=== PATIENT | female | born 1970 | race Caucasian/White ===

== ENCOUNTER 2018-01-06 15:04 | Observation (INO) | payer OTHER ==
[2018-01-06 15:14] VITALS: BMI 26.5
[2018-01-06] MEDS ORDERED: ASPIRIN 325 MG TABLET PO ONE (15:30)
[2018-01-06] MEDS ORDERED: ASPIRIN 325 MG TABLET ONE (15:38)
[2018-01-06] MEDS ORDERED: ASPIRIN 81 MG CHEWABLE TABLETS ONE (15:40)
[2018-01-06] MEDS: SODIUM CHLORIDE 1,000 ML IV SCH (15:42)
[2018-01-06 15:47] LABS: INR 1.19 (0.82-1.09); PROTHROMBIN TIME (PATIENT) 13.4 SEC (9.7-13.0)
[2018-01-06] MEDS ORDERED: ASPIRIN COATED 81 MG TABLET.EC ONE (15:47)
--- NOTE | 2018-01-06 15:49 | PDOC ---
History of Present Illness - General History Source: Patient, EMS Exam Limitations: No Limitations <Felipe Olson - Last Filed: 01/06/18 16:29> - General History Source: Patient, EMS Exam Limitations: No Limitations - History of Present Illness Initial Comments: 01/06/18 16:03 The patient is a 47 year old female, with a significant past medical history of hypertension, asthma, prior TIA, and distant migraine, who presents to the emergency department via EMS with, right sided weakness. 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 She reports sudden onset heartburn-like symptoms and associated shortness of breath with diaphoresis. She took a TUMS and felt an onset of right sided facial numbness with paresthesias across her right side upper and lower extremities. The patient never had a stress test of echocardiogram. She denies recent fevers, chills, headache or dizziness. She denies recent nausea, vomit, diarrhea or constipation. She denies recent dysuria, frequency, urgency or hematuria. <Hyacinth Alas - Last Filed: 01/06/18 17:22> - General Chief Complaint: CVA/TIA Stated Complaint: RIGHT SIDE WEAKNESS Time Seen by Provider: 01/06/18 15:10 Past History - Past Medical History CVA: Yes (TIA) COPD: No HTN: Yes - Suicide/Smoking/Psychosocial Hx Smoking History: Never smoked Have you smoked in the past 12 months: No Information on smoking cessation initiated: No Hx Alcohol Use: No Drug/Substance Use Hx: No Substance Use Type: None <Felipe Olson - Last Filed: 01/06/18 16:29> <Hyacinth Alas - Last Filed: 01/06/18 17:22> - Past Medical History Allergies/Adverse Reactions: Allergies Allergy/AdvReac Type Severity Reaction Status Date / Time No Known Allergies Allergy Verified 01/06/18 15:13 Home Medications: Ambulatory Orders NK [No Known Home Medication] 01/06/18 Review of Systems - Review of Systems Able to Perform ROS?: Yes Comments:: 01/06/18 16:03 +GENERAL/CONSTITUTIONAL: Right sided weakness. No fever or chills. HEAD, EYES, EARS, NOSE AND THROAT: No change in vision. No ear pain or discharge. No sore throat. CARDIOVASCULAR: No chest pain or shortness of breath. RESPIRATORY: No cough, wheezing, or hemoptysis. GASTROINTESTINAL: No nausea, vomiting, diarrhea or constipation. GENITOURINARY: No dysuria, frequency, or change in urination. MUSCULOSKELETAL: No joint or muscle swelling or pain. No neck or back pain. SKIN: No rash +NEUROLOGIC: Right upper and lower extremity paresthesias. No headache, vertigo , or loss of consciousness. ENDOCRINE: No increased thirst. No abnormal weight change. HEMATOLOGIC/LYMPHATIC: No anemia, easy bleeding, or history of blood clots. ALLERGIC/IMMUNOLOGIC: No hives or skin allergy. All Other Systems: Reviewed and Negative <Hyacinth Alas - Last Filed: 01/06/18 17:22> *Physical Exam - Vital Signs Last Vital Signs Temp Pulse Resp BP Pulse Ox 98.2 F 74 17 134/81 98 01/06/18 15:10 01/06/18 15:10 01/06/18 15:10 01/06/18 15:10 01/06/18 15:10 <Felipe Olson - Last Filed: 01/06/18 16:29> - Vital Signs Last Vital Signs Temp Pulse Resp BP Pulse Ox 98.2 F 74 17 134/81 98 01/06/18 15:10 01/06/18 15:10 01/06/18 15:10 01/06/18 15:10 01/06/18 15:10 - Physical Exam Comments: 01/06/18 16:32 GENERAL: Awake, alert, and fully oriented, in no acute distress HEAD: No signs of trauma EYES: PERRLA, EOMI, sclera anicteric, conjunctiva clear ENT: Auricles normal inspection, hearing grossly normal, nares patent, oropharynx clear without exudates. Moist mucosa NECK: Normal ROM, supple, no lymphadenopathy, JVD, or masses LUNGS: Breath sounds equal, clear to auscultation bilaterally. No wheezes, and no crackles HEART: Regular rate and rhythm, normal S1 and S2, no murmurs, rubs or gallops ABDOMEN: Soft, nontender, normoactive bowel sounds. No guarding, no rebound. No masses EXTREMITIES: Normal range of motion, no edema. No clubbing or cyanosis. No cords, erythema, or tenderness NEUROLOGICAL: Decreased sensation on the right side of the face. Motor strength 5/5. No pronator drift. Finger to nose normal. Heel to odonnell normal. Cranial nerves II through XII grossly intact. Normal speech, normal gait SKIN: Warm, Dry, normal turgor, no rashes or lesions noted. <Hyacinth Alas - Last Filed: 01/06/18 17:22> NIH Stroke Scale - Last Known Well Date/Time & Onset Date Last Known Well: 01/06/18 Time Last Known Well: 13:40 - Initial Evaluation Level of consciousness: Alert Ask patient the month and their age: Answers both correctly Ask patient to open & close eyes; make fist and let go: Obeys both correctly Best gaze (horizontal eye movement): Normal Visual field testing: No visual field loss Facial paresis (Show teeth/raise eyebrows/close eyes tight): Normal symmetrical movement Motor Function: Left Arm: Normal Motor Function: Right Arm: Normal (extends arm 90 (or 45) degrees for 10 seconds without drift Motor Function: Left Leg: Normal (extends leg 30 degrees for 5 seconds without drift) Motor Function: Right Leg: Normal (extends leg 30 degrees for 5 seconds without drift) Limb Ataxia: No ataxia Sensory(Use pinprick test arms,legs,trunk,face/side to side): Mild to moderate decrease in sensation Best language (Describe picture, name items, read sentences): No Aphasia Dysarthria (read several words): Normal articulation Extinction and Inattention: No abnormality - Total Score NIH Stroke Scale Score: 1 <Felipe Olson - Last Filed: 01/06/18 16:29> tPA Exclusion Checklist 0-3hr - Time Elapsed Date last known well: 01/06/18 Time last known well: 13:40 Elaspsed time: Day(s) and 2 Hour(s) and 49 Minutes - Thrombolytic Therapy Candidate Is the patient eligible for Thrombolytic Therapy?: No - Relative Exclusion Criteria 0-3h Rapid improvement: Yes Stroke severity too mild: Yes - Ineligibility reason(s) Reasons No tPA given: See reason(s) noted above <Felipe Olson - Last Filed: 01/06/18 16:29> Heart Score/ECG Review - History History: Moderately suspicious - Electrocardiogram EKG: Non specific repolarization disturbance - Age Age: 45-65 - Risk Factors Risk Factors Heart Score: Yes Hx Hypertension, Yes Hx Obesity Based on the list above the patient has:: 1-2 risk factors #1 ECG reviewed & interpreted by me at: 15:25 01/06/18 15:44 NSR 76, LVH, TWI III, avF, T wave flat V4-V6, no std/da, QTC 355 msec <Felipe Olson - Last Filed: 01/06/18 16:29> Critical Care Time/MDM Note - Medical Decision Making Note: 01/06/18 15:45 A portion of this note was documented by scribe services under my direction. I have reviewed the details of the note, within reason, and agree with the documentation with the following case summary and management plan written by me. Patient treated in the ED. Nursing notes are reviewed and incorporated into the medical decision-making. Vital signs reviewed. Peripheral IV access obtained by the nurse, laboratory studies are drawn and sent, reviewed and interpreted by myself. Vital Signs Temp Pulse Resp BP Pulse Ox 98.2 F 74 17 134/81 98 01/06/18 15:10 01/06/18 15:10 01/06/18 15:10 01/06/18 15:10 01/06/18 15:10 47-year-old female patient with history of hypertension, asthma, prior TIA, distant migraine history brought in by EMS for right-sided numbness. 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 She was in her usual state of health when she was working which she felt heartburn-like symptoms with associated shortness of breath and diaphoresis. Denies vomiting or radiation. Stated she had taken Tums but then started notice right facial numbness and paresthesias along the right upper extremity right lower extremity. She denies chest pain currently. Denies short of breath currently. Denies recent illnesses , fevers, chills, cough, vomiting, diarrhea. She has a family history of coronary disease with her mother but denies prior cardiac history herself. Denies smoking history. Never had a stress test or an echocardiogram prior. Given a 47-year-old female patient in history of hypertension and obesity, we' ll obtain blood work including troponin, chest x-ray to rule out GA. Differential also includes gastritis. With right-sided numbness, differential includes CVA versus TIA. Given no chest pain at this time, I have low suspicion for aortic dissection at this time. Patient's NIH stroke scale is a 1. Given that it rapidly resolving and in low NIH scale, case was discussed with neurologist Dr. Scherer, we both agree that the patient is not a candidate for TPA. We'll give aspirin. Head CT is negative for acute hemorrhage. Ultimately, the patient should be admitted to the hospital for further cardiac and neurologic workup. 01/06/18 16:29 CBC, BMP 01/06/18 13:22 01/06/18 13:22 CMP Sodium 139 mmol/L (136-145) 01/06/18 13:22 Potassium 2.9 mmol/L (3.5-5.1) L* 01/06/18 13:22 Chloride 102 mmol/L (98-107) 01/06/18 13:22 Carbon Dioxide 26 mmol/L (21-32) 01/06/18 13:22 Anion Gap 11 (8-16) 01/06/18 13:22 BUN 8 mg/dL (7-18) 01/06/18 13:22 Creatinine 0.9 mg/dL (0.55-1.02) 01/06/18 13:22 Creat Clearance w eGFR > 60 (>60) 01/06/18 13:22 Random Glucose 85 mg/dL (74-106) 01/06/18 13:22 Calcium 8.3 mg/dL (8.5-10.1) L 01/06/18 13:22 Total Bilirubin 0.3 mg/dL (0.2-1.0) 01/06/18 13:22 AST 22 U/L (15-37) 01/06/18 13:22 ALT 23 U/L (12-78) 01/06/18 13:22 Alkaline Phosphatase 79 U/L (45-117) 01/06/18 13:22 Creatine Kinase 116 IU/L (26-192) 01/06/18 13:22 Troponin I < 0.02 ng/ml (0.00-0.05) 01/06/18 13:22 Total Protein 7.5 g/dl (6.4-8.2) 01/06/18 13:22 Albumin 3.3 g/dl (3.4-5.0) L 01/06/18 13:22 Triglycerides 242 mg/dL (35-160) H 06/04/18 13:22 Cholesterol 124 mg/dL (50-200) 01/06/18 13:22 Total LDL Cholesterol 28 mg/dL (5-100) 01/06/18 13:22 HDL Cholesterol 89 mg/dL (40-60) H 01/06/18 13:22 01/06/18 16:29 Patient's weakness may potentially be explained by the hypokalemia. Patient reports that she has a history of hypokalemia. Repletion of the hypokalemia with potassium was ordered. However, given the second since, patient should be admitted for a full cardiac workup as well as a neurological workup. Dr. Carley carvajal for consultation. Case was discussed with Dr. Kirby which is the patient for telemetry observation. <Felipe Olson - Last Filed: 01/06/18 16:29> - Medical Decision Making Note: Call placed to Dr. Scherer, neurology friction saw operator, case was discussed. 4:25pm Call placed to Dr. Kirby, covering medical, for admission case was discussed. Call placed to Dr. Braga, friction saw operator automatic dry starch operator, awaiting call back. 5:20pm Call placed to Dr. Braga, friction saw operator automatic dry starch operator, case discussed with Dr. Gill friction saw operator for Dr. Braga. <Hyacinth Alas - Last Filed: 01/06/18 17:22> Discharge Disposition - Discharge Dispostion Decision to Admit order: Yes <Felipe Olson - Last Filed: 01/06/18 16:29> <Hyacinth Alas - Last Filed: 01/06/18 17:22> - Diagnosis Numbness Chest pain Qualifiers: Chest pain type: unspecified Qualified Code(s): R07.9 - Chest pain, unspecified - Discharge Dispostion Condition at time of disposition: Stable Attestations - Attestations 01/06/18 16:05 Documentation prepared by Hyacinth Alas, acting as medical biller coder for Felipe Olson MD. <Hyacinth Alas - Last Filed: 01/06/18 17:22>
[2018-01-06 15:50] LABS: EOS % 9.9 % (0-4.5); LYMPH % 45.7 % (8-40); MCH 30.5 pg (25.7-33.7); MCHC 33.3 g/dl (32.0-36.0); MEAN CELL VOLUME 91.5 fl (80-96); MEAN PLT VOLUME 9.2 fl (7.5-11.1); MONO % 8.8 % (3.8-10.2); NEUT % 33.6 % (42.8-82.8); PLATELET COUNT 380 K/MM3 (134-434); RBC 3.93 M/mm3 (3.60-5.2); RDW 15.6 % (11.6-15.6); WHITE BLOOD COUNT 7.3 K/mm3 (4.0-10.0)
[2018-01-06 16:05] LABS: ALBUMIN 3.3 g/dl (3.4-5.0); ALK PHOS 79 U/L (45-117); ANION GAP 11 (8-16); BILIRUBIN,TOTAL 0.3 mg/dL (0.2-1.0); BLOOD UREA NITROGEN 8 mg/dL (7-18); CALCIUM 8.3 mg/dL (8.5-10.1); CHLORIDE 102 mmol/L (98-107); CHOLESTEROL 124 mg/dL (50-200); CO2 26 mmol/L (21-32); CREATININE 0.9 mg/dL (0.55-1.02); GLUCOSE,RANDOM 85 mg/dL (74-106); HDL CHOLESTEROL 89 mg/dL (40-60); SGOT/AST 22 U/L (15-37); SGPT/ALT 23 U/L (12-78); SODIUM 139 mmol/L (136-145); TOT PROT 7.5 g/dl (6.4-8.2); TRIGLYCERIDES 242 mg/dL (35-160)
[2018-01-06 16:09] LABS: POTASSIUM 2.9 mmol/L (3.5-5.1)
[2018-01-06] MEDS ORDERED: POTASSIUM CHLORIDE TABS 20 MEQ TABLET.ER (FP) PO ONE ×2 (16:11→16:22)
[2018-01-06] MEDS ORDERED: POTASSIUM CHLORIDE ORAL LIQUID 20 MEQ/15 ML ONE ×2 (16:26→16:28)
[2018-01-06] MEDS ORDERED: KCL 10 MEQ IVPB 30 MEQ/300 ML INFUS.BAG IVPB ONE (16:33)
[2018-01-06] MEDS: KCL 10 MEQ IVPB 10 MEQ/100 ML INFUS.BAG IVPB SCH ×3 (16:40→20:34)
[2018-01-06 16:49] LABS: URINE APPEARANCE CLEAR; URINE BILIRUBIN NEGATIVE (<2.0 mg/dL); URINE BLOOD NEGATIVE (NEGATIVE); URINE COLOR LTYELLOW; URINE GLUCOSE (UA) NEGATIVE (NEGATIVE); URINE KETONE NEGATIVE (NEGATIVE); URINE LEUK ESTERASE NEGATIVE (NEGATIVE); URINE NITRITE NEGATIVE (NEGATIVE); URINE PROTEIN NEGATIVE (NEGATIVE); URINE UROBILINOGEN NEGATIVE mg/dL (0.2-1.0)
--- NOTE | 2018-01-06 17:35 | CON.NEURO ---
Consult - Alcohol/Substance Use Hx Alcohol Use: No - Smoking History Smoking history: Never smoked Have you smoked in the past 12 months: No Home Medications - Allergies Allergies/Adverse Reactions: Allergies Allergy/AdvReac Type Severity Reaction Status Date / Time No Known Allergies Allergy Verified 01/06/18 15:13 - Home Medications Home Medications: Ambulatory Orders NK [No Known Home Medication] 01/06/18 Physical Exam-Neuro Vital Signs: Vital Signs Temperature 98.2 F 01/06/18 15:10 Pulse Rate 74 01/06/18 15:10 Respiratory Rate 17 01/06/18 15:10 Blood Pressure 134/81 01/06/18 15:10 O2 Sat by Pulse Oximetry (%) 98 01/06/18 15:10 Labs: CBC, BMP 01/06/18 13:22 01/06/18 13:22 INR, PTT INR 1.19 (0.82-1.09) H 01/06/18 13:22 Assessment/Plan cc Right sided numbness nd weakness HPI 47 year old female history of htn, asthma and prior tia two years ago. She was advice to take apsirin but not taking due to Reflux. As per patient she takes cholestrol medication, reflux medication and bp medication at home. She felt stomach pain and than she felt sweating and right sided weakness adn numbness. Her ct head is normal, her symptoms are completely resolved. Patient denies smoking, cad in past. She denies any other focal neurological symptoms. 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
--- NOTE | 2018-01-06 21:18 | HP ---
Admitting History and Physical - Primary Care Physician PCP: Azael Kirby - Admission History of Present Illness: 47 year old female, with a significant past medical history of hypertension, asthma, prior TIA, and distant migraine, who presents to the emergency department via EMS with, right sided weakness. 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 She reports sudden onset heartburn-like symptoms and associated shortness of breath with diaphoresis. She took a TUMS and felt an onset of right sided facial numbness with paresthesias across her right side upper and lower extremities. - Past Medical History ROLL OPERATOR: Yes: Migraine Cardiovascular: Yes: HTN Pulmonary: Yes: Asthma - Smoking History Smoking history: Never smoked Have you smoked in the past 12 months: No - Alcohol/Substance Use Hx Alcohol Use: No Home Medications - Allergies Allergies/Adverse Reactions: Allergies Allergy/AdvReac Type Severity Reaction Status Date / Time No Known Allergies Allergy Verified 01/06/18 15:13 - Home Medications Home Medications: Ambulatory Orders Losartan/Hydrochlorothiazide [Losartan-Hctz 100-25 mg Tab] 1 each PO DAILY 01/06 Pravastatin Sodium mg PO DAILY 01/06/18 Aspirin 81 mg PO DAILY #30 tab.chew 01/07/18 Physical Examination Vital Signs: Vital Signs Temperature 98.2 F 01/06/18 15:10 Pulse Rate 84 01/06/18 21:02 Respiratory Rate 18 01/06/18 21:02 Blood Pressure 129/78 01/06/18 21:02 O2 Sat by Pulse Oximetry (%) 99 01/06/18 21:02 Constitutional: Yes: No Distress HENT: Yes: Atraumatic Neck: Yes: Supple Cardiovascular: Yes: Regular Rate and Rhythm Respiratory: Yes: CTA Bilaterally Gastrointestinal: Yes: Normal Bowel Sounds Extremities: Yes: WNL Neurological: Yes: Alert, Oriented ...Motor Strength: WNL Labs: CBC, BMP 01/06/18 13:22 01/06/18 13:22 Problem List - Problems (1) Chest pain Assessment/Plan: will fu cardiac enzymes no chest pain now Code(s): R07.9 - CHEST PAIN, UNSPECIFIED Qualifiers: Chest pain type: unspecified Qualified Code(s): R07.9 - Chest pain, unspecified (2) Numbness Assessment/Plan: resolved exam wnl mri pending carotid us pending Code(s): R20.0 - ANESTHESIA OF SKIN Assessment/Plan Laboratory Tests 01/06/18 01/06/18 01/06/18 13:22 13:22 13:22 WBC 7.3 RBC 3.93 Hgb 12.0 Hct 36.0 MCV 91.5 MCH 30.5 MCHC 33.3 RDW 15.6 Plt Count 380 MPV 9.2 Absolute Neuts (auto) 2.5 Neutrophils % 33.6 L Lymphocytes % 45.7 H Monocytes % 8.8 Eosinophils % 9.9 H Basophils % 2.0 Nucleated RBC % 0 PT with INR 13.40 H INR 1.19 H Sodium 139 Potassium 2.9 L* Chloride 102 Carbon Dioxide 26 Anion Gap 11 BUN 8 Creatinine 0.9 Creat Clearance w eGFR > 60 Random Glucose 85 Calcium 8.3 L Total Bilirubin 0.3 AST 22 ALT 23 Alkaline Phosphatase 79 Creatine Kinase 116 Troponin I < 0.02 Total Protein 7.5 Albumin 3.3 L Triglycerides 242 H Cholesterol 124 Total LDL Cholesterol 28 HDL Cholesterol 89 H Urine Color Urine Appearance Urine pH Ur Specific [place] Urine Protein Urine Glucose (UA) Urine Ketones Urine Blood Urine Nitrite Urine Bilirubin Urine Urobilinogen Ur Leukocyte Esterase Blood Type Antibody Screen 01/06/18 01/06/18 13:22 15:20 WBC RBC Hgb Hct MCV MCH MCHC RDW Plt Count MPV Absolute Neuts (auto) Neutrophils % Lymphocytes % Monocytes % Eosinophils % Basophils % Nucleated RBC % PT with INR INR Sodium Potassium Chloride Carbon Dioxide Anion Gap BUN Creatinine Creat Clearance w eGFR Random Glucose Calcium Total Bilirubin AST ALT Alkaline Phosphatase Creatine Kinase Troponin I Total Protein Albumin Triglycerides Cholesterol Total LDL Cholesterol HDL Cholesterol Urine Color Ltyellow Urine Appearance Clear Urine pH 6.0 Ur Specific [place] 1.014 Urine Protein Negative Urine Glucose (UA) Negative Urine Ketones Negative Urine Blood Negative Urine Nitrite Negative Urine Bilirubin Negative Urine Urobilinogen Negative Ur Leukocyte Esterase Negative Blood Type O POSITIVE Antibody Screen Negative Active Medications Generic Name Dose Route Start Last Admin Trade Name Jayshree PRN Reason Stop Dose Admin Atorvastatin Calcium 40 mg 01/06/18 22:00 Lipitor - PO HS TERRI Sodium Chloride 1,000 mls @ 42 mls/hr 01/06/18 15:15 01/06/18 15:42 Normal Saline - IV 42 mls/hr ASDIR TERRI Administration
[2018-01-06] MEDS ORDERED: ACETAMINOPHEN 325 MG TABLET (FP) PO PRN (21:20)
[2018-01-06] MEDS ORDERED: ATORVASTATIN CA 40 MG TABLET (FP) ONE (21:36)
[2018-01-06] MEDS ORDERED: ATORVASTATIN CA 40 MG TABLET (FP) PO SCH (22:00)
[2018-01-07] MEDS ORDERED: INSULIN (NOVOLOG) ASPART 100 UNITS/ML 10ML VIAL ONE (07:47)
[2018-01-07] MEDS ORDERED: FAMOTIDINE 20 MG/50 ML IVPB 20 MG/50 ML MG IVPB ONE ×2 (08:44→08:48)
[2018-01-07] MEDS ORDERED: MAG HYDROX/AL HYDROX/SIMETH 30 ML UNIT-DOSE CUP PO ONE (08:44)
[2018-01-07] MEDS ORDERED: MAG HYDROX/AL HYDROX/SIMETH 30 ML UNIT-DOSE CUP ONE (08:48)
[2018-01-07] MEDS ORDERED: LOSARTAN POTASSIUM 50 MG TABLET (FP) PO SCH (10:00)
[2018-01-07] MEDS ORDERED: HYDROCHLOROTHIAZIDE 25 MG TABLET (FP) PO SCH (10:00)
[2018-01-07] MEDS ORDERED: PATIENT'S OWN MEDICATION (NON-FORMULARY) (Losartan/Hydrochlorothiazide [Losartan-Hctz 100- PO SCH (10:00)
[2018-01-07] MEDS ORDERED: HYDROCHLOROTHIAZIDE 25 MG TABLET (FP) ONE (10:36)
[2018-01-07] MEDS ORDERED: LOSARTAN POTASSIUM 25 MG TABLET ONE (10:37)
--- NOTE | 2018-01-07 13:18 | EKG ---
Test Reason : Blood Pressure : / mmHG Vent. Rate : 076 BPM Atrial Rate : 076 BPM P-R Int : 132 ms QRS Dur : 100 ms QT Int : 316 ms P-R-T Axes : 018 -06 009 degrees QTc Int : 355 ms NORMAL SINUS RHYTHM VOLTAGE CRITERIA FOR LEFT VENTRICULAR HYPERTROPHY NONSPECIFIC ST AND T WAVE ABNORMALITY ABNORMAL ECG NO PREVIOUS ECGS AVAILABLE Confirmed by MD PREM, ERIC ([id number]) on 01/07/2018 1:17:46 PM Referred By: Confirmed By:ERIC AMARO MD
[2018-01-07 14:54] VITALS: BP 146/97; PULSE 74; TEMP 98
--- NOTE | 2018-01-07 15:08 | PN ---
Progress Note (short form) - Note Progress Note: cc Right sided numbness and weakness HPI 47 year old female history of htn, asthma and prior tia two years ago. She has sudden onset right sided ?weakness and numbness, which now resolved. She was suppose t be on aspirin and statin. She was not taking aspirin. MRI of brain, carotid ultrasound and ct head unremarkable Neurological Examination Alert oriented x 3, speech is normal EOMI, Pupils ractive, no face asymmetry moving all extremity 5/5 FTN,HTS is normal, sensation is normal NIH score is 0, able to swallow mri of brain and carotid ultrasound is normal Assessment- Probable TIA, risk facotr HTN,HLD AND Prior stroke Symptoms resolved Plan- continue asprin and statin - stroke education,dvt prophylaxis - Follow up outpatient, no further test or treatment from neuro point of view. She can be discharged Thanking you so much iMke Scherer MD
--- NOTE | 2018-01-07 15:16 | DS ---
Physical Examination Vital Signs: Vital Signs Temperature 98.0 F 01/07/18 14:53 Pulse Rate 74 01/07/18 14:53 Respiratory Rate 18 01/07/18 14:53 Blood Pressure 146/97 01/07/18 14:53 O2 Sat by Pulse Oximetry (%) 99 01/07/18 14:24 Constitutional: Yes: No Distress HENT: Yes: Atraumatic Neck: Yes: Supple Cardiovascular: Yes: Regular Rate and Rhythm Respiratory: Yes: CTA Bilaterally Gastrointestinal: Yes: Normal Bowel Sounds Extremities: Yes: WNL Neurological: Yes: Alert, Oriented Labs: CBC, BMP 01/06/18 13:22 01/06/18 13:22 Discharge Summary Reason For Visit: NUMBNESS,CHEST PAIN Current Active Problems Chest pain (Acute) Numbness (Acute) Condition: Stable - Instructions Diet, Activity, Other Instructions: follow up neurology as out patient Referrals: ON STAFF,NOT [Primary Care Provider] - Disposition: HOME - Home Medications Comprehensive Discharge Medication List: Ambulatory Orders Losartan/Hydrochlorothiazide [Losartan-Hctz 100-25 mg Tab] 1 each PO DAILY 01/06 Pravastatin Sodium mg PO DAILY 01/06/18 Aspirin 81 mg PO DAILY #30 tab.chew 01/07/18 cleared by neuro to be dc
[2018-01-07] MEDS: SODIUM CHLORIDE 1,000 ML IV SCH (15:25)
[2018-01-07] MEDS ORDERED: PNEUMOC 13-VAL CONJ-DIP CRM/PF 0.5 ML DISP.SYRIN IM ONE (16:00)
== END 2018-01-07 18:27 | disposition home or self-care (01) ==
LOC: JER 15:04 → JERBED 16:31 → J4W 01-07 11:49
PROVIDERS: ADMIT Internal Medicine; ATTEND Internal Medicine
PROC: 3E033GC Introduction of Other Therapeutic Substance into Peripheral Vein, Percutaneous Approach (ICD-10-PCS; principal; 2018-01-06)
PROC: 3E0337Z Introduction of Electrolytic and Water Balance Substance into Peripheral Vein, Percutaneous Approach (ICD-10-PCS; 2018-01-06)
DX: R20.2 Paresthesia of skin (principal); R07.9 Chest pain, unspecified; I10 Essential (primary) hypertension; J45.909 Unspecified asthma, uncomplicated; Z86.73 Personal history of transient ischemic attack (TIA), and cerebral infarction without residual deficits
CPT/HCPCS: 36415; 70450-TC; 70551-TC; 71045-TC-FY; 80053; 81003; 82465; 82550; 83718; 83721; 84478; 84484; 85025; 85610; 86850; 86900; 86901; 93005; 93010; 93306-TC; 93880-TC; 96365; 96375; 99283-25; G0378; J7030

== ENCOUNTER 2019-02-25 13:51 | Emergency (ER) | payer OTHER ==
[2019-02-25 14:07] VITALS: TEMP 98.2; BMI 28.1
--- NOTE | 2019-02-25 14:09 | PDOC ---
Rapid Medical Evaluation Chief Complaint: Blood Pressure Problem Time Seen by Provider: 02/25/19 14:07 Medical Evaluation: Allergies Allergy/AdvReac Type Severity Reaction Status Date / Time No Known Allergies Allergy Verified 01/06/18 15:13 02/25/19 14:07 This patient had a brief in-person evaluation in triage CC: head pressure, nausea and chest tightness today while at work also with elevated blood pressure PE: NAD unlabored breathing heart s1s2 orders: ekg, labs, antiemetic, analgesia This patient will proceed to the ED for further evaluation Discharge Disposition - Diagnosis Headache - Referrals - Patient Instructions - Post Discharge Activity
[2019-02-25 15:08] VITALS: BP 170/97; PULSE 71
[2019-02-25 15:49] LABS: BASO % 3.5 % (0-2.0); EOS % 32.3 % (0-4.5); HEMATOCRIT 33.1 % (32.4-45.2); HEMOGLOBIN 11.2 GM/dL (10.7-15.3); MCH 32.3 pg (25.7-33.7); MCHC 33.8 g/dl (32.0-36.0); MEAN CELL VOLUME 95.5 fl (80-96); MEAN PLT VOLUME 9.2 fl (7.5-11.1); MONO % 6.5 % (3.8-10.2); NEUT % 25.7 % (42.8-82.8); PLATELET COUNT 316 K/MM3 (134-434); RBC 3.47 M/mm3 (3.60-5.2); RDW 14.5 % (11.6-15.6); WHITE BLOOD COUNT 9.4 K/mm3 (4.0-10.0)
[2019-02-25 16:08] LABS: INR 1.06 (0.83-1.09); PROTHROMBIN TIME (PATIENT) 12.5 SEC (9.7-13.0)
[2019-02-25 16:25] LABS: ALBUMIN 3.6 g/dl (3.4-5.0); BILIRUBIN,TOTAL 0.3 mg/dL (0.2-1); BLOOD UREA NITROGEN 8.4 mg/dL (7-18); CALCIUM 8.7 mg/dL (8.5-10.1); CREATININE 0.7 mg/dL (0.55-1.3); POTASSIUM 3.7 mmol/L (3.5-5.1); TOT PROT 7.3 g/dl (6.4-8.2)
[2019-02-25] MEDS ORDERED: ALBUTEROL SO4 2.5/IPRATROPIUM 0.5 INH SOL 3 ML VIAL.NEB. NEB ONE ×2 (16:25→17:08)
--- NOTE | 2019-02-25 16:25 | PDOC ---
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 She states she was at work when she started to feel faint and lightheaded, and when they took her blood pressure "it kept going up. " Patient states her baseline blood pressure is around 140/90s and she did take her BP medication this morning. Patient reports that she is feeling much better at this time and denies any current chest pain, SOB, lightheadedness. PCP is Dr. Jake Connor in [place]. No recent travel or sick contacts. PAST MEDICAL HISTORY: Denies past medical history FAMILY HISTORY: Denies SOCIAL HISTORY: Denies tobacco, alcohol, illicit drug use. SURGICAL HISTORY: Denies ALLERGIES: No known drug allergies REVIEW OF SYSTEMS General/Constitutional: Denies fever or chills. Denies weakness, weight change. HEENT: Runny nose x 4 days. Denies change in vision. Denies ear pain or discharge. Denies sore throat. Cardiovascular: Chest tightness earlier, now resolved. Respiratory: Cough, wheezing x 4 days. Denies hemoptysis. Gastrointestinal: Denies nausea, vomiting, diarrhea or constipation. Denies rectal bleeding. Genitourinary: Denies dysuria, frequency, or change in urination. Musculoskeletal: Denies joint or muscle swelling or pain. Denies neck or back pain. Skin and breasts: Denies rash or easy bruising. Neurologic: Denies headache, vertigo, loss of consciousness, or loss of sensation. PHYSICAL EXAM General Appearance: Well-appearing, appropriately dressed. No apparent distress. HEENT: Rhinorrhea. EOMI, PERRLA, normal ENT inspection, normal voice, TMs normal , pharynx normal. No conjunctival pallor. No photophobia, scleral icterus. Neck: Supple. Trachea midline. No tenderness, rigidity, carotid bruit, stridor , lymphadenopathy, or thyromegaly. Respiratory/Chest: Expiratory wheezing to RLL. No shortness of breath, chest tenderness, respiratory distress, accessory muscle use. No crackles, rales, rhonchi, stridor, wheezing, dullness Cardiovascular: RRR. S1, S2. No JVD, murmur, bradycardia, tachycardia. Vascular Pulses: Dorsalis-Pedis (R): 2+, Dorsalis-Pedis (L): 2+ Gastrointestinal/Abdominal: Normal bowel sounds. Abdomen soft, non-distended. No tenderness or rebound tenderness. No organomegaly, pulsatile mass, guarding , hernia, hepatomegaly, splenomegaly. Lymphatic: No adenopathy, tenderness. Musculoskeletal/Extremities: Normal inspection. FROM of all extremities, normal capillary refill. Pelvis Stable. No CVA tenderness. No tenderness to extremities, pedal edema, swelling, erythema or deformity. Integumentary: Appropriate color, dry, warm. 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 Fully oriented, alert. Appropriate mood/affect. Motor strength 5/5. No appreciable EOM palsy, facial droop or sensory deficit. 02/25/19 16:30 Past History - Past Medical History Allergies/Adverse Reactions: Allergies Allergy/AdvReac Type Severity Reaction Status Date / Time No Known Allergies Allergy Verified 02/25/19 14:07 Home Medications: Ambulatory Orders Losartan/Hydrochlorothiazide [Losartan-Hctz 100-25 mg Tab] 1 each PO DAILY 01/06 Pravastatin Sodium mg PO DAILY 01/06/18 Aspirin 81 mg PO DAILY #30 tab.chew 01/07/18 Albuterol Sulfate Inhaler - [Ventolin HFA Inhaler -] 1 - 2 inh PO Q4H PRN #1 inhaler 02/25/19 Asthma: Yes CVA: Yes (TIA) COPD: No HTN: Yes Hypercholesterolemia: Yes - Suicide/Smoking/Psychosocial Hx Smoking History: Never smoked Have you smoked in the past 12 months: No Information on smoking cessation initiated: No Hx Alcohol Use: No Drug/Substance Use Hx: No Substance Use Type: None *Physical Exam - Vital Signs Last Vital Signs Temp Pulse Resp BP Pulse Ox 98.2 F 71 17 170/97 99 02/25/19 14:04 02/25/19 15:07 02/25/19 15:07 02/25/19 15:07 02/25/19 15:07 ED Treatment Course - LABORATORY CBC & Chemistry Diagram: 02/25/19 15:40 02/25/19 15:40 - ADDITIONAL ORDERS Additional order review: Laboratory Results 02/25/19 02/25/19 02/25/19 15:40 15:40 15:40 PT with INR 12.50 INR 1.06 PTT (Actin FS) Sodium 139 Potassium 3.7 Chloride 102 Carbon Dioxide 30 Anion Gap 7 L BUN 8.4 Creatinine 0.7 Est GFR (CKD-EPI)AfAm 118.74 Est GFR (CKD-EPI)NonAf 102.45 Random Glucose 83 Calcium 8.7 Total Bilirubin 0.3 AST 15 ALT 19 Alkaline Phosphatase 82 Troponin I < 0.02 Total Protein 7.3 Albumin 3.6 02/25/19 15:40 PT with INR INR PTT (Actin FS) 30.4 Sodium Potassium Chloride Carbon Dioxide Anion Gap BUN Creatinine Est GFR (CKD-EPI)AfAm Est GFR (CKD-EPI)NonAf Random Glucose Calcium Total Bilirubin AST ALT Alkaline Phosphatase Troponin I Total Protein Albumin 02/25/19 15:40 RBC 3.47 L MCV 95.5 MCHC 33.8 RDW 14.5 MPV 9.2 Neutrophils % 25.7 L D Lymphocytes % 32.0 D Monocytes % 6.5 Eosinophils % 32.3 H* D Basophils % 3.5 H - Medications Given in the ED: ED Medications Discontinued Medications Generic Name Dose Route Start Last Admin Trade Name Freq PRN Reason Stop Dose Admin Albuterol/Ipratropium 1 amp 02/25/19 16:25 02/25/19 17:21 Duoneb - NEB 02/25/19 16:26 1 amp ONCE ONE Administration Medical Decision Making - Medical Decision Making 02/25/19 17:41 48 yo F with hx of HTN, HTN, GERD, asthma presents to ED with lightheadedness, near syncope, and chest tightness that began approximtaely 3 hours [employer]. Bilateral BP 161/95, 171/103. Mild wheezing to RLL, duoneb given. Patient reassessed; currently denies any symptoms and states she feels much better and requests to go home. Advised patient to take medication as prescribed and follow up with PCP within the next 3-5 days. Advised patient of signs and symptoms for return to ED. Patient verbalized understanding and agrees to plan. *DC/Admit/Observation/Transfer Diagnosis at time of Disposition: Eosinophilic asthma Headache Qualifiers: Headache type: unspecified Headache chronicity pattern: acute headache Intractability: not intractable Qualified Code(s): R51 - Headache - Discharge Dispostion Disposition: HOME Condition at time of disposition: Stable Decision to Admit order: No - Prescriptions Prescriptions: Albuterol Sulfate Inhaler - [Ventolin HFA Inhaler -] 1 - 2 inh PO Q4H PRN #1 inhaler PRN Reason: Short Of Breath/Wheezing - Referrals Referrals: ON STAFF,NOT [Primary Care Provider] - - Patient Instructions Printed Discharge Instructions: DI for High Blood Pressure, DI for Asthma -- Adult Additional Instructions: Please follow up with your primary care doctor within the next 3-5 days. If you develop any new headache, blurry vision, chest pain, shortness of breath, or any new or worsening symptoms, please return to the ER. - Post Discharge Activity
[2019-02-25 16:39] LABS: PLATELET ESTIMATE ADEQUATE
--- NOTE | 2019-02-26 14:39 | EKG ---
Test Reason : Blood Pressure : / mmHG Vent. Rate : 071 BPM Atrial Rate : 071 BPM P-R Int : 146 ms QRS Dur : 082 ms QT Int : 424 ms P-R-T Axes : 051 -12 020 degrees QTc Int : 460 ms NORMAL SINUS RHYTHM POSSIBLE LEFT ATRIAL ENLARGEMENT LEFT VENTRICULAR HYPERTROPHY ABNORMAL ECG WHEN COMPARED WITH ECG OF 06-JAN-2018 15:24, NONSPECIFIC T WAVE ABNORMALITY NO LONGER EVIDENT IN LATERAL LEADS QT HAS LENGTHENED Confirmed by CELE CHNE, CELE ([id number]) on 02/26/2019 2:38:55 PM Referred By: Confirmed By:CELE OAKLEY MD
== END 2019-02-25 17:55 | disposition home or self-care (01) ==
LOC: JER 13:51
PROC: 3E0F7GC Introduction of Other Therapeutic Substance into Respiratory Tract, Via Natural or Artificial Opening (ICD-10-PCS; principal; 2019-02-25)
DX: R51 Headache (principal)
CPT/HCPCS: 36415; 80053; 84484; 85025; 85610; 85730; 93005; 93010; 94640; 99282-25